=== PATIENT | female | born 1940 | race Caucasian/White ===

== ENCOUNTER 2021-01-09 13:50 | Emergency (ER) | payer MEDICARE ==
[~2021-01-09] VITALS: Ht 162.6 cm; Wt 67.6 kg
[2021-01-09] MEDS ORDERED: TELM80TA9 PO (14:01)
[2021-01-09] MEDS ORDERED: ATOR10TA PO (14:01)
[2021-01-09] MEDS ORDERED: HYDR12.55 PO (14:01)
[2021-01-09] MEDS ORDERED: LEVO88TA5 PO (14:01)
[2021-01-09] MEDS ORDERED: AMLO-212 PO (14:01)
[2021-01-09] MEDS ORDERED: METF750T46 PO (14:01)
[2021-01-09 14:03] VITALS: BP 181/81
== END 2021-01-09 15:30 | disposition home or self-care (01) ==
LOC: ER 14:02
DX: S16.1XXA Strain of muscle, fascia and tendon at neck level, initial encounter (principal); S80.01XA Contusion of right knee, initial encounter; S05.12XA Contusion of eyeball and orbital tissues, left eye, initial encounter; I10 Essential (primary) hypertension; E11.9 Type 2 diabetes mellitus without complications; Z79.899 Other long term (current) drug therapy; Z79.84 Long term (current) use of oral hypoglycemic drugs; W01.198A Fall on same level from slipping, tripping and stumbling with subsequent striking against other object, initial encounter; Y93.89 Activity, other specified; Y92.89 Other specified places as the place of occurrence of the external cause; Y99.8 Other external cause status
CPT/HCPCS: 70450-TC; 70486-TC; 72125-TC